=== PATIENT | female | born 1975 | race African-American/Black ===

== ENCOUNTER 2018-09-04 16:37 | Emergency (ER) | payer SELFPAY ==
[~2018-09-04] VITALS: Ht 175.3 cm; Wt 134.3 kg
[2018-09-04] MEDS ORDERED: HYDROCODONE/APAP 7.5MG-325MG 1 EA TAB PO PRN (17:00)
--- NOTE | 2018-09-04 17:16 | NUR ---
X-ray completed at this time.
--- NOTE | 2018-09-04 18:29 | Diagnostic Imaging Report ---
EXAM: SHOULDER RIGHT COMPLETE DATE: 09/04/2018 4:51 PM INDICATION: Pain COMPARISON: None FINDINGS: No fracture or subluxation. Mild degenerative changes. IMPRESSION: No acute findings. Signed by: Dr. Suleman Casas MD on 09/04/2018 6:26 PM
[2018-09-04 19:26] VITALS: BP 140/87
== END 2018-09-04 19:28 | disposition home or self-care (01) ==
LOC: ER 16:37
DX: M25.511 Pain in right shoulder (principal); S40.011A Contusion of right shoulder, initial encounter; Y04.2XXA Assault by strike against or bumped into by another person, initial encounter; Y92.008 Other place in unspecified non-institutional (private) residence as the place of occurrence of the external cause
CPT/HCPCS: 99283